=== PATIENT | female | born 1960 | race African-American/Black ===

== ENCOUNTER 2018-03-19 13:11 | Emergency (ER) | payer OTHER ==
[~2018-03-19] VITALS: Ht 152.4 cm; Wt 102.1 kg
[2018-03-19 14:06] LABS: CLARITY,URINE TURBID; COLOR,URINE RED; NITRITE,URINE POSITIVE (NEG)
[2018-03-19 14:17] LABS: BILIRUBIN,URINE NEGATIVE (NEG); PROTEIN,URINE 100 mg/dL (NEG-TRACE)
[2018-03-19 14:24] LABS: BACTERIA,URINE FEW /HPF (0-FEW); RBC,URINE TNTC /HPF (0-2); SQUAMOUS EPITHELIAL CELL,UR MOD /LPF
[2018-03-19 14:29] LABS: BASO % 1 % (0-3); EOS % 1 % (0-3); HEMATOCRIT 38.1 % (36.0-47.0); HEMOGLOBIN 12.7 g/dL (12.0-15.5); LYMPH # 1.6 x10^3/uL (1.0-4.8); LYMPH % 36 % (24-48); MEAN CORPUSCULAR HEMOGLOBIN 27 pg (25-35); MEAN CORPUSCULAR HGB CONC 33 g/dL (31-37); MEAN CORPUSCULAR VOLUME 82 fL (79-100); MONO # 0.3 x10^3/uL (0.0-1.1); MONO % 8 % (0-9); NEUT # 2.4 x10^3uL (1.8-7.7); NEUT % 55 % (31-73); PLATELET COUNT 316 x10^3/uL (140-400); RED BLOOD COUNT 4.67 x10^6/uL (3.50-5.40); RED CELL DISTRIBUTION WIDTH 15.1 % (11.5-14.5); WHITE BLOOD COUNT 4.4 x10^3/uL (4.0-11.0)
--- NOTE | 2018-03-19 14:29 | PHYS DOC ---
Past Medical History Past Medical History: Hypertension, Other Additional Past Medical Histor: "blood clots in my back, side and lung." Past Surgical History: Alcohol Use: Occasionally Drug Use: None Adult General Chief Complaint Chief Complaint: BLOOD IN URINE HPI HPI Patient is a 57 year old female with history of hypertension, PE is currently on Coumadin who presents with hematuria that has been going on since 03 March 2018. Patient states symptoms come and go. Patient denies any other symptoms. She states her PCP checks her INR every month. She does not remember the last numbers of her INR. Review of Systems Review of Systems Constitutional: Denies fever or chills [] Eyes: Denies change in visual acuity, redness, or eye pain [] HENT: Denies nasal congestion or sore throat [] Respiratory: Denies cough or shortness of breath [] Cardiovascular: No additional information not addressed in HPI [] GI: Denies abdominal pain, nausea, vomiting, bloody stools or diarrhea [] : Reports hematuria. Denies dysuria Musculoskeletal: Denies back pain or joint pain [] Integument: Denies rash or skin lesions [] Neurologic: Denies headache, focal weakness or sensory changes [] All other systems were reviewed and found to be within normal limits, except as documented in this note. Current Medications Current Medications Current Medications Medications (Trade) Dose Ordered Sig/Debbie Start Time Stop Time Status Last Admin Dose Admin Ceftriaxone Sodium 50 ml @ 100 mls/hr 1X ONCE 03/19/18 15:00 03/19/18 15:29 DC 03/19/18 15:33 100 MLS/HR Allergies Allergies Allergies Coded Allergies Type Severity Reaction Last Updated Verified No Known Drug Allergies 03/19/18 No Physical Exam Physical Exam Constitutional: Well developed, well nourished, no acute distress, non-toxic appearance. [] HENT: Normocephalic, atraumatic, bilateral external ears normal, oropharynx moist, no oral exudates, nose normal. [] Eyes: PERRLA, EOMI, conjunctiva normal, no discharge. [] Neck: Normal range of motion, no tenderness, supple, no stridor. [] Cardiovascular:Heart rate regular rhythm, no murmur [] Lungs & Thorax: Bilateral breath sounds clear to auscultation [] Abdomen: Bowel sounds normal, soft, no tenderness, no masses, no pulsatile masses. [] Skin: Warm, dry, no erythema, no rash. [] Back: No tenderness, no CVA tenderness. [] Extremities: No tenderness, no cyanosis, no clubbing, ROM intact, no edema. [] Neurologic: Alert and oriented X 3, normal motor function, normal sensory function, no focal deficits noted. [] Psychologic: Affect normal, judgement normal, mood normal. [] Current Patient Data Vital Signs Vital Signs Date Time Temp Pulse Resp B/P (MAP) Pulse Ox O2 Delivery O2 Flow Rate FiO2 03/19/18 15:35 84 20 143/87 (105) 98 03/19/18 13:45 98.0 Room Air 98.0 Lab Values Laboratory Tests Test 03/19/18 13:53 03/19/18 14:20 03/19/18 14:40 Urine Collection Type Unknown Urine Color Red Urine Clarity Turbid Urine pH 6.0 Urine Specific [place] 1.020 Urine Protein 100 mg/dL (NEG-TRACE) Urine Glucose (UA) Negative mg/dL (NEG) Urine Ketones (Stick) Negative mg/dL (NEG) Urine Blood Large (NEG) Urine Nitrite Positive (NEG) Urine Bilirubin Negative (NEG) Urine Urobilinogen Dipstick 1.0 mg/dL (0.2 mg/dL) Urine Leukocyte Esterase Large (NEG) Urine RBC Tntc /HPF (0-2) Urine WBC 5-10 /HPF (0-4) Urine Squamous Epithelial Cells Mod /LPF Urine Bacteria Few /HPF (0-FEW) White Blood Count 4.4 x10^3/uL (4.0-11.0) Red Blood Count 4.67 x10^6/uL (3.50-5.40) Hemoglobin 12.7 g/dL (12.0-15.5) Hematocrit 38.1 % (36.0-47.0) Mean Corpuscular Volume 82 fL (79-100) Mean Corpuscular Hemoglobin 27 pg (25-35) Mean Corpuscular Hemoglobin Concent 33 g/dL (31-37) Red Cell Distribution Width 15.1 % (11.5-14.5) H Platelet Count 316 x10^3/uL (140-400) Neutrophils (%) (Auto) 55 % (31-73) Lymphocytes (%) (Auto) 36 % (24-48) Monocytes (%) (Auto) 8 % (0-9) Eosinophils (%) (Auto) 1 % (0-3) Basophils (%) (Auto) 1 % (0-3) Neutrophils # (Auto) 2.4 x10^3uL (1.8-7.7) Lymphocytes # (Auto) 1.6 x10^3/uL (1.0-4.8) Monocytes # (Auto) 0.3 x10^3/uL (0.0-1.1) Eosinophils # (Auto) 0.0 x10^3/uL (0.0-0.7) Basophils # (Auto) 0.0 x10^3/uL (0.0-0.2) Prothrombin Time 20.2 SEC (11.7-14.0) H Prothrombin Time INR 1.8 (0.8-1.1) H PTT 36 SEC (24-38) Sodium Level 139 mmol/L (136-145) Potassium Level 3.8 mmol/L (3.5-5.1) Chloride Level 105 mmol/L (98-107) Carbon Dioxide Level 25 mmol/L (21-32) Anion Gap 9 (6-14) Blood Urea Nitrogen 15 mg/dL (7-20) Creatinine 0.7 mg/dL (0.6-1.0) Estimated GFR (Cockcroft-Gault) 105.1 Glucose Level 94 mg/dL (70-99) Calcium Level 9.2 mg/dL (8.5-10.1) Laboratory Tests 03/19/18 14:20 Laboratory Tests 03/19/18 14:40 EKG EKG [] Radiology/Procedures Radiology/Procedures []PROCEDURE: CT ABDOMEN PELVIS WO CONTRAST CT ABDOMEN PELVIS WO CONTRAST Indication: HEMATURIA NO PREV NO CONTRAST Exposure: One or more of the following individualized dose reduction techniques were utilized for this examination: 1. Automated exposure control 2. Adjustment of the mA and/or kV according to patient size 3. Use of iterative reconstruction technique. Comparison: None are available. Contrast: No intravenous contrast given. No oral contrast per request. Evaluation of solid viscera, bowel and vasculature is compromised by the noncontrast technique. Lower thorax: Mild groundglass opacity, partially visualized in the right lower lobe. Mild linear opacities bilaterally. Liver: Unremarkable Spleen: Unremarkable Pancreas: Unremarkable Adrenals: No evidence of mass. Kidneys: Subtle hypodense lesion within the midpole of the right kidney measures about 3 cm. This may represent a cyst, but warrants further evaluation due to its ill-defined nature. Urinary tracts: No urolithiasis or hydronephrosis. Gallbladder: No calcified stone Aorta: Nonaneurysmal Lymph nodes: No significant enlargement GI tract: No evidence of acute colitis. No evidence of bowel obstruction. Appendix is normal. Reproductive organs: The uterus demonstrates a large and lobulated morphology. There is a particularly large mass arising from the right uterine fundus measuring about 6.5 cm and containing a dense coarse calcification. These findings are likely due to uterine fibroids. Urinary bladder: Unremarkable. Peritoneum: No evidence of pneumoperitoneum. No free fluid. Abdominal wall: Small fat-containing umbilical hernia. Spine: Mild degenerative spondylosis. Mild anterior subluxation of L4 on L5. Bones: No destructive process identified. IMPRESSION: 1. Hypodense lesion at the midpole the right kidney, may represent a cyst, but other mass should be excluded. Recommend nonemergent renal ultrasound. 2. Large uterus with lobulated masses, would most commonly represent fibroids. These could also be further characterized with ultrasound. 3. Mild groundglass opacity, partially visualized in the right lower lobe, most likely of infectious or inflammatory etiology. Electronically signed by: Reji Carpio MD (03/19/2018 3:55 PM) [facility] DICTATED and SIGNED BY: REJI CARPIO MD DATE: 03/19/18 1545 Course & Med Decision Making Course & Med Decision Making Pertinent Labs and Imaging studies reviewed. (See chart for details) This is a 57-year-old female patient on Coumadin for PE presenting to the ED today with hematuria. Urine noted for large amount of blood, nitrates and large amount of leukocytes. The CBC with a normal WBC, normal hemoglobin and hematocrit, BMP is normal. INR 1.8. CT of the abdomen and pelvic without IV contrast also noted for lesions on the right kidney that may represent a cyst though they could not exclude a mass. Recommended following up with PCP for an outpatient ultrasound. Patient also noted for large uterus with lobulated masses , commonly present with the fibroids-patient states she'll follow-up with her own PCP for this too. CT also noted for opacities on the right lower lobe likely infectious or inflammatory etiology. Patient has no cough or signs of infection. This is likely inflammatory, patient states she has an appointment with her PCP on 27 March. Patient was started on Rocephin in the ED. She'll be discharged on cephalexin. She is to follow-up with her own PCP next week. Jacob Disclaimer Jacob Disclaimer This electronic medical record was generated, in whole or in part, using a voice recognition dictation system. Departure Departure Impression: Primary Impression: Urinary tract infection Additional Impressions: Renal cyst Fibroids Disposition: HOME, SELF-CARE Condition: STABLE Referrals: MATEUSZ FONTENOT, WINSTONC (PCP) Follow up with the primary care doctor on 03/27/2018 as scheduled Patient Instructions: Urinary Tract Infection Additional Instructions: You were evaluated for hematuria/blood in your urine in the emergency room. You have urinary tract infection. We put you on antibiotics, ensure you complete them. Follow-up with your own doctor for the fibroids as well as the cyst on your kidney. Come back to the ED at any point symptoms worsen. Your INR was 1.8 today 03/19/2018 Scripts Cephalexin (CEPHALEXIN) 500 Mg Tablet 1 TAB PO BID, #14 TAB Prov: NAYELI ORDOÑEZ APRN 03/19/18 Problem Qualifiers Primary Impression: Urinary tract infection Urinary tract infection type: site unspecified Hematuria presence: without hematuria Qualified Codes: N39.0 - Urinary tract infection, site not specified NAYELI ORDOÑEZ APRN Mar 19, 2018 14:29
[2018-03-19 14:39] LABS: PROTHROMBIN TIME PATIENT 20.2 SEC (11.7-14.0)
[2018-03-19 15:08] LABS: CALCIUM 9.2 mg/dL (8.5-10.1); CREATININE 0.7 mg/dL (0.6-1.0); GFR 105.1; POTASSIUM 3.8 mmol/L (3.5-5.1)
--- NOTE | 2018-03-19 15:59 | RAD ---
CT ABDOMEN PELVIS WO CONTRAST Indication: HEMATURIA NO PREV NO CONTRAST Exposure: One or more of the following individualized dose reduction techniques were utilized for this examination: 1. Automated exposure control 2. Adjustment of the mA and/or kV according to patient size 3. Use of iterative reconstruction technique. Comparison: None are available. Contrast: No intravenous contrast given. No oral contrast per request. Evaluation of solid viscera, bowel and vasculature is compromised by the noncontrast technique. Lower thorax: Mild groundglass opacity, partially visualized in the right lower lobe. Mild linear opacities bilaterally. Liver: Unremarkable Spleen: Unremarkable Pancreas: Unremarkable Adrenals: No evidence of mass. Kidneys: Subtle hypodense lesion within the midpole of the right kidney measures about 3 cm. This may represent a cyst, but warrants further evaluation due to its ill-defined nature. Urinary tracts: No urolithiasis or hydronephrosis. Gallbladder: No calcified stone Aorta: Nonaneurysmal Lymph nodes: No significant enlargement GI tract: No evidence of acute colitis. No evidence of bowel obstruction. Appendix is normal. Reproductive organs: The uterus demonstrates a large and lobulated morphology. There is a particularly large mass arising from the right uterine fundus measuring about 6.5 cm and containing a dense coarse calcification. These findings are likely due to uterine fibroids. Urinary bladder: Unremarkable. Peritoneum: No evidence of pneumoperitoneum. No free fluid. Abdominal wall: Small fat-containing umbilical hernia. Spine: Mild degenerative spondylosis. Mild anterior subluxation of L4 on L5. Bones: No destructive process identified. IMPRESSION: 1. Hypodense lesion at the midpole the right kidney, may represent a cyst, but other mass should be excluded. Recommend nonemergent renal ultrasound. 2. Large uterus with lobulated masses, would most commonly represent fibroids. These could also be further characterized with ultrasound. 3. Mild groundglass opacity, partially visualized in the right lower lobe, most likely of infectious or inflammatory etiology. Electronically signed by: Reji Carpio MD (03/19/2018 3:55 PM) [facility]
[2018-03-19] MEDS ORDERED: CEPH500T PO (16:15)
[2018-03-19 16:25] VITALS: BP 141/91
== END 2018-03-19 16:35 | disposition home or self-care (01) ==
LOC: ER 13:11
DX: N28.1 Cyst of kidney, acquired (principal); D25.9 Leiomyoma of uterus, unspecified; I10 Essential (primary) hypertension; Z98.890 Other specified postprocedural states
CPT/HCPCS: 36415; 74176; 80048; 81001; 85025; 85610; 85730; 87086; 96365; 99285; J0690; 87186